=== PATIENT | female | born 1950 | race Asian ===

== ENCOUNTER → 2024-01-02 13:48 | Outpatient (CLI) | payer MEDICARE, SELFPAY ==
--- NOTE | 2024-01-02 13:51 | DI.NM.S_ITS ---
PROCEDURE: NM JARED PERF SPECT R&S PHARM Rest and pharmacological stress myocardial perfusion SPECT with gated imaging and ejection fraction RADIOPHARMACEUTICAL: 25.2 mCi Tc-99m tetrafosmin IV at rest and 25.6 mCi Tc-99m tetrafosmin IV at peak effect of pharmacological stress. Idr-vmc-gonvacly was performed. INDICATIONS: pre op TECHNIQUE: Radiopharmaceutical was injected at peak stress test, and also at rest. SPECT images were obtained. SPECT myocardial perfusion images were displayed in short axis, horizontal long axis, and vertical long axis views. Gated images were reviewed using HengZhi software. COMPARISON: None. CARDIAC STRESS: A pharmacologic stress test was performed under the supervision of an attending staff, using an infusion of lexiscan 0.4mg IV X1. Hemodynamic data: There is normal blood pressure and heart rate response to pharmacologic stress. Symptoms: The patient denied anginal chest pain. Aminophylline: none EKG: No diagnostic changes of ischemia; no ectopy. FINDINGS: Raw data: There is good myocardial uptake of radiotracer. No significant motion artifacts. Wmqb-yu-xfxuy ratio is 0.35 (normal is less than 0.38 for tetrafosmin tracer). Left ventricle function: Gated images demonstrate normal left ventricular wall thickening. No segmental wall motion abnormalities. No transient ischemic dilation; TID is 0.97 (normal less than 1.3). Left ventricle resting end diastolic volume is 66 mL. Left ventricle stress ejection fraction is 77%; normal range is above 45%. Myocardial perfusion: There is normal distribution of activity in the right and left ventricular myocardium. No fixed or reversible perfusion defects. IMPRESSION: Low risk, normal pharm nuclear stress test. 1) No perfusion evidence of ischemia or infarction. 2) Normal left ventricular size, wall motion, and systolic function (EF post stress 77%). 3) No angina during the study. 4) No ST changes during the study. 5) No prior nuclear stress test available for comparison. Dictated by: Heydi Salcedo MD on 01/03/2024 at 13:53 Approved by: Heydi Salcedo MD on 01/03/2024 at 13:55
== END ==
LOC: NUCM 13:50
PROVIDERS: Referring Provider Internal Medicine; Visit Provider Internal Medicine
DX: Z01.818 Encounter for other preprocedural examination (principal)
CPT/HCPCS: 78452; 93017; A9502; J2785

== ENCOUNTER → 2024-01-03 09:07 | Outpatient (CLI) | payer MEDICARE, SELFPAY ==
--- NOTE | 2024-01-03 09:08 | DI.ECHO.S_ITS ---
[facility] : : [address] : : [place] : : [id number] : : Phone: [phone] Echocardiogram Report + + :Name: LUCI RICE Study Date: 01/03/2024 Height: 59 in : :[facility] ReadingLocation: Weight: 127 lb : : Gender: Female BSA: 1.5 m2 : :: 1950 Age: 73 yrs BP: 148/62 mmHg: :Reason For Study: PRE-OP : :Ordering Physician: BRAYDEN COLLADO Performed By: Aniya Mccollum : :Referring: BRAYDEN COLLADO : + + Interpretation Summary 1. Normal left ventricular contractility. Estimated ejection fraction is greater than 55% with no segmental wall motion abnormalities. No LVH is noted. Impaired relaxation present. 2. The right ventricular contractility is normal. 3. The left atrium is mildly dilated. All other cardiac chambers are of normal size. 4. Mild mitral regurgitation present. 5. No obvious intracardiac masses nor thrombi appreciated. 6. No obvious intracardiac shunts noted. 7. No hemodynamically significant pericardial effusion identified. Conclusion: Normal biventricular systolic function with no significant structural abnormalities. Procedure: A two-dimensional transthoracic echocardiogram with color flow and Doppler was performed. The study quality was technically adequate. There is no prior echocardiogram noted for this patient. The patient was in sinus bradycardia with heart rates between 58-65 bpm during the exam. Left Ventricle: The left ventricle is normal in size and wall thickness. The ejection fraction is estimated to be 60-65%. Right Ventricle: The right ventricle is normal in size and function. Atria: The left atrium is mildly dilated. Right atrial size is normal. There is no Doppler evidence for an interatrial shunt. Mitral Valve: The mitral valve is normal in structure and function. There is mild mitral regurgitation. Aortic Valve: The aortic valve is grossly normal. The aortic valve opens well. There is no aortic valve stenosis. There is trace aortic regurgitation. Tricuspid Valve: The tricuspid valve is normal in structure and function. There is trace tricuspid regurgitation. Pulmonary artery pressures cannot be estimated because of the lack of a measurable TR jet velocity. Pulmonic Valve: The pulmonic valve is not well visualized. There is no pulmonic valvular regurgitation. Great Vessels: The aortic root is normal size. The ascending aorta could not be visualized. The IVC is of normal diameter and collapses greater than 50% with a sniff. This suggests a low right atrial pressure of 3 mm Hg. Pericardium/ Pleura There is no pericardial effusion. There is no pleural effusion. MMode/2D Measurements & Calculations LVIDd: 5.2 cm LVOT diam: 2.0 cm LVIDs: 3.4 cm Ao root diam: 2.8 cm FS: 35.3 % Ao Arch Diam (Prox Trans): 2.2 cm IVSd: 1.0 cm LVPWd: 0.82 cm LV jain. diameter/BSA (cm/m^2): 3.4 LV sys. diameter/BSA (cm/m^2): 2.2 LA A2 area: 20.9 cm2 RA long axis: 4.3 cm LA A4 area: 17.2 cm2 RA area: 12.0 cm2 LA length (vol): 4.9 cm RA vol: 28.1 ml LA vol: 61.5 ml RA : 18.5 ml/m2 LA vol index: 40.5 ml/m2 IVC diam: 1.3 cm RVD1 (basal): 3.3 cm TAPSE: 1.8 cm Doppler Measurements & Calculations Ao V2 max: 104.7 cm/sec LVOT Max [place]: 70.4 cm/sec Ao V2 mean: 75.8 cm/sec LV V1 max P.0 mmHg Ao max P.4 mmHg LV V1 VTI: 18.0 cm Ao mean P.[address](I,D): 2.1 cm2 Ao V2 VTI: 27.[address](V,D): 2.1 cm2 sev ratio: 0.66 LANE indexed to BSA (cm^2/m^2): 1.4 MV E max [place]: 72.6 cm/sec PA V2 max: 79.5 cm/sec MV A max [place]: 45.1 cm/sec PA V2 mean: 55.0 cm/sec MV E/A: 1.6 PA mean P.4 mmHg Med Peak E' [place]: 7.5 cm/sec PA pr(Accel): 34.5 mmHg E/E' med: 9.7 Lat Peak E' [place]: 7.5 cm/sec E/E' lat: 9.7 E/e' average: 9.7 MV dec time: 0.23 sec [facility]): 56.7 ml Reading Physician:
== END ==
LOC: ECHO 09:08
PROVIDERS: Referring Provider Internal Medicine; Visit Provider Internal Medicine
DX: Z01.818 Encounter for other preprocedural examination (principal); I34.0 Nonrheumatic mitral (valve) insufficiency
CPT/HCPCS: 93306

== ENCOUNTER → 2024-03-14 14:33 | Outpatient (CLI) | payer MEDICARE, SELFPAY ==
[2024-03-14 15:30] LABS: Appearance Urine UA CLEAR; Bilirubin Urine UA NEGATIVE (NEGATIVE); Color Urine UA YELLOW; Glucose Urine UA NEGATIVE (Negative); Ketones Urine UA NEGATIVE (NEGATIVE); Leukocyte Esterase Urine UA TRACE (NEGATIVE); Nitrite Urine UA NEGATIVE (Negative); Occult Blood Urine UA NEGATIVE (Negative); Protein Urine UA 1+ (Negative); Specific Gravity Urine UA 1.025 (1.000-1.035)
[2024-03-14 15:47] LABS: Bacteria Urine Few (2-10); Culture Indicated Urine Cult Not Indicated; Hyaline Casts Urine 5-10/LPF; RBC Urine None Seen (0-5/HPF); Squamous Epithelial Cell Urine 1-5 /HPF (0-5/HPF); Urine Volume 10mL (spun); WBC Urine 1-5/HPF (0-5/HPF)
[2024-03-14 15:57] LABS: BUN Creatinine Ratio 31.6 (6-22); Blood Urea Nitrogen 31 mg/dL (7-17); Calcium 9.1 mg/dL (8.4-10.2); Carbon Dioxide 25 mmol/L (22-32); Chloride 104 mmol/L (98-107); Estimated Glomerular Filt Rate > 60 mL/min (>60); Glucose 140 mg/dL (80-110); HEMOLYSIS < 15 (0-50); Potassium 3.4 mmol/L (3.4-5.1); Sodium 141 mmol/L (137-145)
== END ==
PROVIDERS: PCP Physician Assistant Medical; Referring Provider Orthopaedic Surgery; Visit Provider Orthopaedic Surgery
DX: R73.9 Hyperglycemia, unspecified (principal); Z01.812 Encounter for preprocedural laboratory examination; N39.0 Urinary tract infection, site not specified
CPT/HCPCS: 36415; 80048; 81001; 83036

== ENCOUNTER 2024-03-25 12:11 | Day surgery (SDC) | payer MEDICARE, SELFPAY ==
[2024-03-19 12:35] VITALS: BMI 24.7
[2024-03-25] VITALS (13 sets, daily range): BP systolic 92–159; BP diastolic 43–68; PULSE 54–74; RESP 12–21; TEMP 35.9–36.9; O2SAT 83–96; BMI 24.7
--- NOTE | 2024-03-25 | DI.RAD.S_ITS ---
PROCEDURE: XR PELVIS 1-2V INDICATIONS: INTRA OP PELVIS TECHNIQUE: 1 view(s) of the pelvis acquired. COMPARISON: None. FINDINGS: Bones: Single view limits evaluation. Right total hip arthroplasty is intact on this image with no perihardware lucency. Soft tissues: Postsurgical changes about the right hip. Vascular calcifications. Partially visualized vascular stent projects over the right pelvis. IMPRESSION: Right total hip arthroplasty is intact on limited single view. Dictated by: Ranjith Styles M.D. on 03/25/2024 at 16:26 Approved by: Ranjith Styles M.D. on 03/25/2024 at 16:27
--- NOTE | 2024-03-25 06:00 | DI.RAD.S_ITS ---
PROCEDURE: XR HIP W PEL IF DONE RT 2V INDICATIONS: CHRISTO TECHNIQUE: 2 view(s) of the hip acquired. COMPARISON: None. FINDINGS: Bones: Patient is status post left hip arthroplasty, with hardware components in expected positions. The hip joint appears congruent. The visualized bony structures appear intact. Soft tissues: Overlying postoperative changes are noted. No suspicious soft tissue densities. IMPRESSION: Expected post-operative appearance of a hip arthroplasty. Dictated by: Harley Salgado M.D. on 03/25/2024 at 17:03 Approved by: Harley Salgado M.D. on 03/25/2024 at 17:03
[2024-03-25] MEDS: LACTATED RINGERS 1,000 ML 42 ML IV (12:36)
[2024-03-25] MEDS: CELECOXIB 200 MG CAPSULE PO (12:36)
[2024-03-25] MEDS: ACETAMINOPHEN 325 MG TABLET 975 MG PO (12:36)
[2024-03-25] MEDS: VANCOMYCIN 1,000 MG/200 ML PIGGYBACK 120 MG IV (13:38)
--- NOTE | 2024-03-25 14:12 | PM.PREOP ---
Pre-operative Note Interval Note History & Physical reviewed/Exam performed by Physician: Yes Changes to H&P: No
--- NOTE | 2024-03-25 14:13 | PM.OP.1 ---
Operative Date/Time/Diagnoses Date of procedure: 03/25/24 Time of procedure: 14:30 Pre-op diagnosis: Severe right hip OA Post-op diagnosis: same Procedure & Clinicians Procedure: Right total hip arthroplasty posterior approach Same procedure as scheduled: Yes Indications: The patient has had progressively worsening right hip pain with radiographic changes consistent with arthritis. Non-operative management has failed and the patient has requested total hip replacement. The risks, benefits and alternatives to surgery were discussed with the patient prior to proceeding. Risks discussed included, but were not limited to, failure to relieve pain, leg length discrepancy, dislocation, stiffness, infection, nerve damage, deep venous thrombosis, pulmonary embolism, stroke, coma, heart attack, permanent paralysis and , as well as the potential need for eventual revision of the prosthetic. She also has a known severe vascular disease with prior vascular endoscopic stents bilaterally. Risk of vascular compromise or concerns was carefully considered and discussed preoperatively. She takes Plavix and I told her it is fine to be on her Plavix postoperatively. Surgeon: Frances De Leon Stencil Machine Operator: Ezio Evans Anesthesia Type: General and Spinal Operative Notes Findings: Severe right hip OA, adequate stability Closure Type: primary Specimen(s): none sent Prosthetic devices, grafts, tissues, transplants, or devices: Fifty-two R3 De Leon and Nephew cup, neutral poly liner, one 6.5 mm screw, size 1 standard offset polar stem, 36 x +0 femoral head Estimated Blood Loss (mL): 250 Blood products transfused: none Procedure in detail: The patient was seen in the pre-operative area, where the patient identified the right hip as the operative site and this was marked with my initials. The patient received pre-operative antibiotics and was taken to the operating room and placed on the operative table in the left lateral decubitus position after satisfactory anesthesia. A retread operator out was performed. The right leg was prepared from the ankle to the iliac crest with ChloroPrep in the usual fashion and draped through sterile drapes. A PA was used intraoperatively and was essential for intraoperative retraction and safe implantation of the components. The hip was approached through an approximately 20 cm incision centered over the greater trochanter and curving gently posteriorly as it went proximally. This was carried sharply to the fascia ki, which was divided and retracted with a self retaining retractor. The trochanteric bursa was excised with care being taken to avoid the sciatic nerve, which was identified and protected throughout the case. The short external rotators were incised and the capsulomuscular flap was raised and tagged for later repair. The hip was dislocated, and a femoral neck osteotomy performed approximately 15 mm above the lesser trochanter. Retractors were placed around the femur. The canal was opened with a box cutting osteotome, followed by a T handled reamer and a lateralizing reamer. The chili pepper broach was then used, followed by sequential broaching until there was good stability of the broach in the femur. Retractors were placed to expose the acetabulum. The labrum and central soft tissues were removed. Reaming was performed initially going up in 2 mm increments, then 1 mm increments until good bite was obtained with an odd sized reamer. The cup 1 mm larger than the last reamer was then inserted using the appropriate anteversion guides. It was further stabilized with a single screw. A trial neutral liner was placed. The broach was placed in the canal. A trial head and neck were then placed and the hip relocated and checked for leg length and stability. An intraoperative film confirmed the component position and no evidence of fracture. The patient was stable in the position of sleep, of squatting, and could be put through a range of motion with 45 degrees internal rotation without dislocation. At 90 degrees flexion, internal rotation to 70? was possible before dislocation. This was felt to be satisfactory and the appropriate components were opened, and the trials were removed. The acetabular liner was impacted into position. The final stem was then impacted into the prepared femoral canal. A brief Betadine soak was performed while trialing with head options. The hip was meticulously irrigated with normal saline. Finally the femoral head was impacted onto the stem. The acetabulum was cleared of all material and the hip relocated one final time. During the procedure was very careful to make sure the patient's leg was moving and not in awkward positions in order to avoid any vascular kinking or irritation. The sciatic nerve was also well visualized noted to be intact with no compression and she was quite thin so there was not much fat in the region of the sciatic nerve. Procedure was performed without difficulty. She had good stability. The capsulomuscular flap was then repaired to the greater trochanter though an awl hole using the tag sutures. The short external rotators were repaired with a nonabsorbable suture. The fascia ki was closed with Vicryl. The subcutaneous layer was closed with barbed sutures and surgical glue. An Aquacel Ag dressing was applied and the patient was taken to recovery having tolerated the procedure well. Complications: none Post-operative Condition: stable Disposition: Acute Care Plan for aftercare: The patient will be maintained on a standard total hip replacement protocol with weight bearing as tolerated and posterior hip precautions. The patient will receive Aspirin and Plavix and sequential compression devices for DVT prophylaxis. The patient will be discharged home when safe for the home environment.
[2024-03-25] MEDS: CEFAZOLIN 2 GM/100 ML PREMIX 100 ML IV ×2 (14:50→23:05)
[2024-03-25] MEDS: TRANEXAMIC ACID 1,000 MG VIAL 1000 MG INJ (14:58)
--- NOTE | 2024-03-25 15:21 | SUR.OPER ---
Lateral on padded OR bed. Gel axillary roll. Arms secured on padded armboard with pillow supporting top arm. Padded hip positioner braces x4 - anterior and posterior chest and pelvis. Additional gel pad used anterior pelvis. Gel pad under bottom leg from knee to foot and secured with tape over sheet.
[2024-03-25] MEDS: BUPIVACAINE LIPOSOME 266 MG/20 ML VIAL INJ (16:14)
[2024-03-25] MEDS: BUPIVACAINE 0.25% (PF) 60 ML, EPINEPHrine 0.3 MG INJ (16:15)
[2024-03-25] MEDS: ONDANSETRON 4 MG/2 ML INJ IV (16:48)
[2024-03-25] MEDS: OXYCODONE IR 5 MG TABLET PO ×2 (16:48→17:04)
[2024-03-25] MEDS: CLOPIDOGREL 75 MG TABLET PO (17:45)
--- NOTE | 2024-03-25 18:01 | PC.NURSE ---
Pt to room 213 via bed from PACU. Pt is awake, alert, and oriented x 3. Able to speak and understand Tajik without difficulty-samish language is Slovak. Friend/ S.O is at the bedside. Upon arrival to the room Pt stated she needed to get up to void. Assisted Pt up to bsc using gait belt and FWW. Pt able to void and then returned to bed to eat dinner. Reviewed posterior hip precautions with Pt-pillow was placed between legs to prevent leg crossing. IV infusing as ordered. SCD's on and running. Bed alarm on for safety. Pt oriented to room, call light, bed controls, and tv controls. Pt agrees to not get up without assistance. Pt denies needs at this time.
[2024-03-25] MEDS: PANTOPRAZOLE DR 40 MG TABLET PO (21:30)
[2024-03-25] MEDS: DOCUSATE 100 MG CAPSULE PO (21:30)
[2024-03-25] MEDS: ATORVASTATIN 20 MG TABLET 40 MG PO (21:30)
[2024-03-25] MEDS: LOSARTAN 50 MG TABLET PO (21:30)
[2024-03-25] MEDS: METOPROLOL ER 50 MG TABLET PO (21:31)
[2024-03-25] MEDS: LACTATED RINGERS 1,000 ML 100 ML IV (21:31)
[2024-03-26] VITALS (9 sets, daily range): BP systolic 120–138; BP diastolic 42–52; PULSE 60–67; RESP 16–18; TEMP 36.7–36.9; O2SAT 88–98
[2024-03-26 06:09] LABS: Hematocrit 32.7 % (36-46); Hemoglobin 10.7 g/dL (12.0-16.0)
[2024-03-26] MEDS: OXYCODONE IR 5 MG TABLET PO ×3 (06:27→23:34)
[2024-03-26] MEDS: CEFAZOLIN 2 GM/100 ML PREMIX 100 ML IV (06:28)
--- NOTE | 2024-03-26 07:47 | PM.DS.1 ---
History of Present Illness History of Present Illness Date Patient Seen: 03/26/24 Time Patient Seen: 07:47 Chief complaint: OPB Narrative: Operative Date/Time/Diagnoses Date of procedure: 03/25/24 Time of procedure: 14:30 Pre-op diagnosis: Severe right hip OA Post-op diagnosis: same Procedure & Clinicians Procedure: Right total hip arthroplasty posterior approach Same procedure as scheduled: Yes Indications: The patient has had progressively worsening right hip pain with radiographic changes consistent with arthritis. Non-operative management has failed and the patient has requested total hip replacement. The risks, benefits and alternatives to surgery were discussed with the patient prior to proceeding. Risks discussed included, but were not limited to, failure to relieve pain, leg length discrepancy, dislocation, stiffness, infection, nerve damage, deep venous thrombosis, pulmonary embolism, stroke, coma, heart attack, permanent paralysis and , as well as the potential need for eventual revision of the prosthetic. She also has a known severe vascular disease with prior vascular endoscopic stents bilaterally. Risk of vascular compromise or concerns was carefully considered and discussed preoperatively. She takes Plavix and I told her it is fine to be on her Plavix postoperatively. Surgeon: Frances De Leon Manager Heavy Duty: Ezio Evans Anesthesia Type: General and Spinal Operative Notes Findings: Severe right hip OA, adequate stability Closure Type: primary Specimen(s): none sent Prosthetic devices, grafts, tissues, transplants, or devices: Fifty-two R3 De Leon and Nephew cup, neutral poly liner, one 6.5 mm screw, size 1 standard offset polar stem, 36 x +0 femoral head Estimated Blood Loss (mL): 250 Discharge Providers Provider Date of admission: 03/25/24 Discharge Date: 03/26/24 Primary care physician: Christal Davis PA-C Consults: 03/25/24 06:00 Consult to Anesthesiology Routine Comment: Consulting Provider: Anesthesiologist Reason for consultation: Regional block for post operative pain control Has provider been notified: No Consult to Anesthesiology Routine Comment: Consulting Provider: Anesthesiologist Reason for consultation: Regional block for post operative pain control 03/25/24 17:25 Consult to Discharge Planning Routine Comment: Consult to Occupational Therapy Evaluate & Treat Comment: Physician Instructions: Evaluate and treat Consult to Physical Therapy Evaluate & Treat Comment: Physician Instructions: post op CHRISTO protocol Discharge provider: Jessee Barajas PA-C Summary Hospital Course Discharge Diagnosis: Status post right total hip arthroplasty. Hospital Course: Multimodal pain control and physical therapy. Status at Discharge Cognitive/behavioral status at discharge: oriented Functional status at discharge: uses cane/walker Overall status at discharge: patient is back to baseline Time Spent with Patient Time spent: Less than 30 minutes Time spent discussing smoking cessation with patient: 3 to 10 minutes Exam Vital Signs (past 8 hours): Oxygen Delivery Method Room Air Oxygen Flow Rate 0 Narrative Exam Narrative: Patient was found lying comfortably in bed. She says she has a little pain. Denies any numbness or tingling down the right leg. Denies any fever chills nausea or vomiting. No increased pain bilaterally to the posterior calf or thighs. No warmth noted upon palpation. Able to dorsiflex and plantarflex against resistance bilaterally at the ankles Dressing is clean and dry no signs of discharge. SCDs found off. Resp Effort & Inspection: normal respiratory effort and able to speak in complete sentences Objective Labs 03/26/24 05:13 Labs: Laboratory Results - last 24 hr 03/26/24 05:13 Hgb 10.7 L Hct 32.7 L PFSH Medical History (Updated 03/19/24 @ 13:21 by Paulette Miner RN) Hypoxemia Bilateral carotid bruits PAD (peripheral artery disease) Acute and chronic respiratory failure Spinal stenosis of lumbar region Cervical spinal stenosis Hypokalemia Renal artery stenosis Diabetes Renal insufficiency Osteoarthritis Hypercholesteremia HTN (hypertension) PVD (peripheral vascular disease) COPD (chronic obstructive pulmonary disease) History of COVID-19 (~08/2023) Surgical History (Updated 03/19/24 @ 12:42 by Paulette Miner RN) S/P insertion of iliac artery stent Social History household members: spouse and none Smoking Status: Former smoker alcohol intake: never Discharge Assessment & Plan Assessment and Plan Assessment: Status post right total hip arthroplasty. Plan of Treatment: SCDs reapplied and to be used when in bed. Discharge to home. Patient is already been prescribed postoperative medications and discussed with their usage. Continue with aspirin 81 mg twice a day for 6 weeks. Ambulate with assistive devices full weightbearing activity as tolerated. Initiate physical therapy in 5 to 10 days. Wound check at clinic in 2 weeks. Discharge Plan Discharge Plan Patient Disposition: Home Provider Discharge Comment: DC pending PT approval Discharge orders & Medications Discharge Orders: Discharge (Order); Ordered 03/26/24 Ordered By: Jessee Barajas Prescriptions: Continued losartan 50 mg Tablet 50 mg PO BID metoprolol succinate 50 mg Tablet Extended Release 24 Hr 50 mg PO BID clopidogrel 75 mg Tablet 75 mg PO DAILY aspirin 81 mg Tablet,Delayed Release (Dr/Ec) 81 mg PO DAILY amlodipine 10 mg Tablet 10 mg PO DAILY pantoprazole 40 mg Tablet,Delayed Release (Dr/Ec) 40 mg PO BID albuterol sulfate 90 mcg/actuation Hfa Aerosol Inhaler 2 puff INHALATION Q4-6H PRN (Reason: Shortness Of Breath) rosuvastatin 20 mg Tablet 20 mg PO BEDTIME albuterol sulfate 90 mcg/actuation HFA aerosol inhaler 2 puff INHALATION Q4H Patient Comments: pt states 2 weeks or so ago Follow up/Referrals: Frances De Leon MD [Physician] - 04/08/24 10:30 am (Follow up w/ Frank Barajas PA-C, at [facility] in [place] Christal Davis PA-C [Primary Care Provider] - Diet/Activity/Treatments Diet: Diet as Tolerated Activity: Weightbearing as tolerated, posterior hip precautions. Cold/Heat Therapy: Ice to hip as needed for pain. Skin/Wound/Dressing Care Report to your healthcare provider any signs of infection, such as:: chills, fever, night sweats, unusual drainage and unusual redness Dressing: May shower. Keep dressing in place until follow up in office. No bathing or otherwise soaking incision. Call the office if the dressing becomes saturated inside. Visit Report/Discharge Packet Instructions: DI for Hip Replacement Stand Alone Forms: Patient Portal/API, Surgery Discharge Discharge Data Primary Care Provider: Christal Davis Attending Provider: Frances De Leon Quality VTE Deep Vein Thrombosis/Pulmonary Embolism Present on Admission: No
[2024-03-26] MEDS: PANTOPRAZOLE DR 40 MG TABLET PO ×2 (08:59→20:59)
[2024-03-26] MEDS: ASPIRIN EC 81 MG TABLET PO ×2 (08:59→20:59)
[2024-03-26] MEDS: DOCUSATE 100 MG CAPSULE PO ×2 (08:59→20:59)
[2024-03-26] MEDS: CLOPIDOGREL 75 MG TABLET PO (08:59)
[2024-03-26] MEDS: METOPROLOL ER 50 MG TABLET PO (08:59)
[2024-03-26] MEDS: AMLODIPINE 5 MG TABLET 10 MG PO (08:59)
[2024-03-26] MEDS: ACETAMINOPHEN 325 MG TABLET 650 MG PO (09:00)
[2024-03-26] MEDS: LOSARTAN 50 MG TABLET PO (09:00)
--- NOTE | 2024-03-26 10:03 | OT.IP.EVAL ---
Current Diagnoses Unilateral primary osteoarthritis, right hip (03/25/24) Surgery Performed Operation Date: 03/25/24 13:45 Actual Procedures p Total Hip Arthroplasty(Right) - Frances De Leon MD Past Medical History (Last Updated 03/19/24 @ 13:21 by Paulette Miner, RN) Acute and chronic respiratory failure Bilateral carotid bruits Cervical spinal stenosis COPD (chronic obstructive pulmonary disease) Diabetes History of COVID-19 (~08/2023) HTN (hypertension) Hypercholesteremia Hypokalemia Hypoxemia Osteoarthritis PAD (peripheral artery disease) PVD (peripheral vascular disease) Renal artery stenosis Renal insufficiency Spinal stenosis of lumbar region Surgical History (Last Updated 03/19/24 @ 12:42 by Paulette Miner, SUSI) S/P insertion of iliac artery stent Occupational Therapy Inpatient Evaluation/Re-Eval M1 PT/OT-IP Prior Functional Status Start: 03/26/24 10:14 Freq: NEEDED Status: Active Protocol: Document 03/26/24 10:14 [facility] (Rec: 03/26/24 10:39 [facility] [id number]) Medical Review Prior Functional Status Communication French is her primary language . Mobility and Gait Pt did not use a device but only able to walk for 4-5 minutes at a time and did not use a device. Activities of Daily Living and IADL's Pt able to do ADL and IADL needs but had pain. Social History Household Members none Living Arrangements House Number of Floors (Floors) One Floor Number of Stairs To Enter/Railing? NO steps to get into the house . Pt uses a step to get into bed . Home Environment Standard Height Toilet,Tub/ Shower Home Equipment Four Wheel Walker,Straight Cane,Shower Seat with Backrest ,Hand Held Shower,Grab Bars In Shower M2 OT-IP Current Condition Start: 03/26/24 10:14 Freq: Status: Active Protocol: Document 03/26/24 10:14 [facility] (Rec: 03/26/24 10:39 [facility] [id number]) Occupational Therapy Current Condition Current Condition Evaluation Date 03/26/24 Treatment Diagnosis S/P R CHRISTO posterior precautions Diagnosis Onset Date 03/25/24 Post Operative Precautions Posterior Hip Precautions No Hip Flexion > 90 degrees,No Hip Internal Rotation,No Hip Adduction Weight Bearing Status Weight Bearing Status Weight Bear as Tolerated M3 OT- IP Subjective and Pain Start: 03/26/24 10:14 Freq: Status: Active Protocol: Document 03/26/24 10:14 [facility] (Rec: 03/26/24 10:39 [facility] [id number]) OT- Subjective Occupational Therapy Visit Type Type Initial Evaluation Visit Start Time 09:05 Visit Stop Time 10:03 Occupational Therapy Visit Comments Patient Comments Pt agreed to get up. Patient/Caregiver Goals To go home. OT Pain Assessment Pain When Pain Assessed At Rest Pain Present Pain Present Pain Reported Location Right Hip Intensity 7 Scale Used Numeric (0 - 10) M4 OT- IP ADL's Start: 03/26/24 10:14 Freq: Status: Active Protocol: Document 03/26/24 10:14 [facility] (Rec: 03/26/24 10:39 [facility] [id number]) OT [id number]-[id number]-[id number] General Evaluation Self-Feeding Ability Independent OT ADL-Grooming Comments OT Grooming Comments Not performed. OT ADL-Oral Care Comments Oral Care Comments Not performed. OT ADL-Dressing General Eval Lower Body Dressing Ability Maximum Assistance Areas Needing Assistance Socks Comments OT Dressing Comments Pt will benefit from assist for all LB dressing needs and getting LB dressing equipment. OT ADL-Toileting Comments OT Toileting Comments Pt not having to go at this time. Educated best to stand and wipe, use of brief/pads so not having to hurry to the bathroom. In addition to get a BSC. OT ADL-Bathing Comments OT Bathing Comments Pt will benefit from a tub bench. Pt states her friend will just pick her up and put her into the shower and use a shower chair. Discouraged pt from doing so. M5 OT- IP IADL's Start: 03/26/24 10:14 Freq: Status: Active Protocol: Document 03/26/24 10:14 [facility] (Rec: 03/26/24 10:39 [facility] [id number]) OT-Instrumental Activities of Daily Living Deficits IADL Deficits Identified Deficits Home Safety Awareness Awareness of Need for Assistance at Home Good Awareness Home Safety Comments Pt is aware that she will need assist for ADl and IADL needs . Medication Management Medication Management Comments Pt states does her own. Money Management Money Management Comments Pt states does her own. Meal Preparation Meal Preparation Caregiver Provides Assist Rn Military Rn Military Caregiver Provides Assist M6 OT- IP Functional Cognition Start: 03/26/24 10:14 Freq: Status: Active Protocol: Document 03/26/24 10:14 [facility] (Rec: 03/26/24 10:39 [facility] [id number]) Cognitive Factors Limiting Selfcare Function Cognitive Ability Level of Alertness Alert Patient Orientation Name,Age,Birthday,Month,Date, Year,Day of Week,Place, Situation Attention Span Ability Capable of Focused Attention, Capable of Sustained Attention Ability to Follow Commands Able to Follow One Step Commands Cognitive Comments Cognitive Assessment Comments Pt able to follow commands for ADL and mobility needs. Pt able to recall and incorporate her precautions with occasional vc especially for bed mobility needs. OT- Vision and Hearing OT- Hearing Assessment OT- Hearing Assessment WFL OT- Vision Assessment Visual Acuity Glasses All The Time Visual Attentiveness WFL Occular Pursuits WFL M7 OT- IP Mobility and Balance Start: 03/26/24 10:14 Freq: Status: Active Protocol: Document 03/26/24 10:14 [facility] (Rec: 03/26/24 10:39 [facility] [id number]) OT- Bed Mobility Assessment Supine to Sit Supine to Sit Assist Moderate Assistance,Maximum Assistance Sit to Supine Sit to Supine Assist Moderate Assistance Scooting Scooting to Edge of Bed Moderate Assistance OT-Transfer Assessment Sit to and From Stand Sit to and from Stand Minimal Assistance Transfers Transfer Ability Minimal Assistance Technique Transfer Destination Bed,Chair Transfer Technique Stand Step Pivot Devices Transfer Assistive Devices Gait Belt,Front Wheeled Walker Orthotic/Prosthetic Devices or Brace: No Comments Mobility Comments MODA to help move her RLE to the edge of the bed and assist to get her trunk upright. MAX AX to help scoot forwards in the bed. RUKHSANA to stand from the high bed and RUKHSANA to take small steps to the recliner. BP RUE HOB up 79/39, 87/48. supine 94/55, sitting 76/43, 85/37 feeling woozy, back in supine 83/49- nursing notified . Per nurse pt's BP higher in her left arm. Supine 141/46, sitting 140/34, and standing 134/41 transfer tp recliner. Pt put on 2L of O2 by nursing as no RA reading mid 80's and on 2L from 88-91%. OT- Balance Assessment Sitting Balance and Reactions Static Sitting Balance Ability Good Dynamic Sitting Balance Ability Fair Standing Balance and Reactions Static Standing Balance Ability Poor Dynamic Standing Balance Ability Poor M8 OT- IP Objective Assessments Start: 03/26/24 10:14 Freq: Status: Active Protocol: Document 03/26/24 10:14 [facility] (Rec: 03/26/24 10:39 [facility] [id number]) OT Strength Comments Strength Comments WFL for mobility needs. M9 OT- IP Assessment and Plan Start: 03/26/24 10:14 Freq: Status: Active Protocol: Document 03/26/24 10:14 [facility] (Rec: 03/26/24 10:39 [facility] [id number]) OT Summary Assessment and Plan Potential Rehabilitation Potential Good Analytic Complexity at Evaluation Low Summary OT Impairments Pain,Range of Motion,Strength, Balance,Functional Mobility, Grooming,Dressing,Toileting, Bathing,Toilet Transfers, Shower Transfers,Activity Tolerance Progress Towards Goals Slow Progress due to Pain,Slow Progress due to Medical Issues,Slow Progress due to Activity Tolerance Assessment Summary Pt low complexity and main barriers are pain, feeling woozy when sitting and standing, and needing assist for RLE for bed mobility needs , and now using 2L of O2. Pt to have assist at home for all needs and will benefit from assist with all ADL and mobility needs at this time. Pt to go home when medically stable and have outpt PT. Goals Grooming Goal Independent Dressing Goal Minimal Assistance Toileting Goal Independent Bathing Goal Standby Assistance Toilet Transfer Goal Independent Shower Transfer Goal Standby Assistance Days to Meet Goals 5 Frequency of Treatment Other frequency 5x/week Treatment Plan OT Treatment Plan ADL Training,Functional Mobility,Patient/Family Education,Discharge Planning Other Treatment Recommendations and Next Standing ADL's Treatment Focus Discharge Recommendations OT Discharge Recommendations Home with 19/03 Assist Available,Outpatient PT Home Equipment Needs BSC, tub bench, FWW Transportation Needs at Discharge Private Vehicle
--- NOTE | 2024-03-26 12:40 | PT.IIE ---
Current Diagnoses Unilateral primary osteoarthritis, right hip (03/25/24) Surgery Performed Operation Date: 03/25/24 13:45 Actual Procedures p Total Hip Arthroplasty(Right) - Frances De Leon MD Surgical History (Last Updated 03/19/24 @ 12:42 by Paulette Miner, RN) S/P insertion of iliac artery stent Medical History (Last Updated 03/19/24 @ 13:21 by Paulette Miner, RN) Acute and chronic respiratory failure Bilateral carotid bruits Cervical spinal stenosis COPD (chronic obstructive pulmonary disease) Diabetes History of COVID-19 (~08/2023) HTN (hypertension) Hypercholesteremia Hypokalemia Hypoxemia Osteoarthritis PAD (peripheral artery disease) PVD (peripheral vascular disease) Renal artery stenosis Renal insufficiency Spinal stenosis of lumbar region Physical Therapy Inpatient Evaluation/Re-Eval M1 PT/OT-IP Prior Functional Status Start: 03/26/24 10:14 Freq: NEEDED Status: Active Protocol: Document 03/26/24 12:03 AMB (Rec: 03/26/24 12:39 AMB [id number]) Medical Review Prior Functional Status Communication Sami is her primary language . Mobility and Gait Pt did not use a device but only able to walk for 4-5 minutes at a time and did not use a device. Activities of Daily Living and IADL's Pt able to do ADL and IADL needs but had pain. Social History Household Members none Living Arrangements House Number of Floors (Floors) One Floor Number of Stairs To Enter/Railing? NO steps to get into the house . Pt uses a step to get into bed . Home Environment Standard Height Toilet,Tub/ Shower Home Equipment Four Wheel Walker,Straight Cane,Shower Seat with Backrest ,Hand Held Shower,Grab Bars In Shower Additional Social History Comment Patient is dischargin to a friends' home where there are adult children who can assist her as well. She will return to her home at a later date. M2 PT-IP Current Condition Start: 03/26/24 10:00 Freq: NEEDED Status: Active Protocol: Document 03/26/24 12:03 AMB (Rec: 03/26/24 12:39 AMB [id number]) Physical Therapy Current Condition Current Condition Evaluation Date 03/26/24 Treatment Diagnosis R posterior CHRISTO Onset Date 03/25/24 M3 PT-IP Subjective Start: 03/26/24 10:00 Freq: NEEDED Status: Active Protocol: Document 03/26/24 12:03 AMB (Rec: 03/26/24 12:39 AMB [id number]) Subjective Physical Therapy Visit Type Type Initial Evaluation Visit Start Time 11:00 Visit Stop Time 11:45 Physical Therapy Visit Comments Patient Comments Pt is having some pain, but is willing to get up, she needs to urinate Therapy Pain Assessment Pain When Pain Assessed After Treatment Pain Present Pain Present Pain Reported Location Right Hip Intensity 6 Scale Used Numeric (0 - 10) Pain Behaviors Guarding Pain Management Techniques Apply Cold,Re-positioning M4 PT-IP Mobility and Gait Start: 03/26/24 10:00 Freq: NEEDED Status: Active Protocol: Document 03/26/24 12:03 AMB (Rec: 03/26/24 12:39 AMB [id number]) PT-Transfer Assessment Sit to and From Stand Sit to and from Stand Contact Guard Assistance,1 Person Assistance,Use of Upper Extremities Equipment Transfer Assistive Device Gait Belt,Front Wheeled Walker Transfers Transfer Destination Bed,Chair,Bedside Commode Transfer Technique Stand Step Pivot Transfer Ability Level of Assist Contact Guard Assistance,1 Person Assistance,Use of Upper Extremities Comments Mobility Comments Myke was sitting in a chair when PT entered the room. She needed to urinate, PT assisted her to standing with gait belt, reviewed posterior hip precautions and assisted her to transfer to commode. Her O2 in standing with 2L nasal cannula was 90 and BP in standing was 115/37. After voiding she stood to stand to walk, see mobility section. Gait Assessment Gait Gait Assistance Required: Contact Guard Assist Distance (Feet) 8 Able to Maintain Weight Bearing Status Yes During Gait Assistive Devices Assistive Device Front Wheeled Walker Gait Deviations General Gait Pattern Antalgic,Decreased Stride Length,Decreased Feet Clearance,Step-to Gait Factors Limiting Gait Function Factors Limiting Gait Function Decreased Activity Tolerance, Decreased Strength,Pain Comments Gait Comments Myke has good safety awareness but was very slow with her gait due to pain and dizziness. She required CGA with FWW and ambulated 8 feet in 3-4 minutes without supplementary O2. After walking she noted increased pain in her hip and in her bilateral shoulders from holding the walker. Her O2 dropped to 85 and blood pressure improved to 120/51. She noted she was about 20% dizzy. Overall slow antalgic gait, very careful. M5 PT-IP Objective Assessments Start: 03/26/24 10:00 Freq: NEEDED Status: Active Protocol: Document 03/26/24 12:03 AMB (Rec: 03/26/24 12:39 AMB [id number]) Orientation Orientation/Cognition Level of Alertness Alert Gross Range of Motion Lower Extremity ROM Assessment Right Impaired Strength Lower Extremity Strength Assessment Right Impaired M6 PT-IP Treatment Start: 03/26/24 10:00 Freq: NEEDED Status: Active Protocol: Document 03/26/24 12:03 AMB (Rec: 03/26/24 12:39 AMB [id number]) Physical Therapy Treatment Exercises Exercises Ankle Pumps Education Education Provided Precautions M7 PT-IP Assessment and Plan Start: 03/26/24 10:00 Freq: NEEDED Status: Active Protocol: Document 03/26/24 12:03 AMB (Rec: 03/26/24 12:39 AMB [id number]) PT Summary Assessment and Plan Potential Rehabilitation Potential Fair Status of Condition at Evaluation Evolving Summary Impairments Pain,Bed Mobility,Transfers, Gait,Activity Tolerance Assessment Summary Myke's blood pressure has been quite low, resulting in dizziness. She is also experiencing pain and low O2 stats which is impacting her mobility. She walked 8 feet very slowly and carefully, requiring at least 3 minutes to ambulate 8 feet. Myke will need to ambulate from the car into her home and step up onto a step to get into bed. She also voids urine multiple times at night and will need to get off of the platform onto the floor to do this. She was encouraged to ask for help from her friend to do this and not do it independently at this time. Considering her poor mobility, dizziness, low O2 levels PT would recommend that she have more time in the hospital before going home so that she can be safer at discharge. Taking 3 minutes to walk 8 feet is not especially functional and given her low blood pressure she remains at high risk of falls at this time. Goals Bed Mobility Goal Contact Guard Assistance Transfer Goal Contact Guard Assistance Gait Goal Contact Guard Assistance Gait Distance 50 Days to Meet Goals 3 Frequency of Treatment Frequency Of Treatment Twice a Day Treatment Plan Physical Therapy Treatment Plan Bed Mobility Training,Transfer Training,Gait Training, Therapeutic Exercise, Neuromuscular Re-ed Other Recommendations and Next Treatment Practice step to get into bed, Focus progress tolerance for further gait distances Precautions Posterior Hip Precautions No Hip Flexion > 90 degrees,No Hip Internal Rotation,No Hip Adduction Weight Bearing Status Weight Bearing Status Weight Bear as Tolerated Recommendations To Nursing Amount of Assist Needed 1 Person Assist Discharge Recommendations PT Discharge Recommendations Home with 19/03 Assist Available Transportation Needs at Discharge Private Vehicle
--- NOTE | 2024-03-26 13:52 | CM.DANOTE ---
Initial DCP Assessment Visit Note Reviewed EMR and team rounds for status updates. Met with pt at bedside to introduce self and role. Pt was found to be resting comfortably in bed, appearing comfortable, and able to discuss her preference for home d/c. Pt resides independently in her own home in [place]. Her SO will transport her home once she's medically cleared for d/c, anticipated for later today. Payor: BRUCE Helton Attending: Dr. Frances De Leon Pt is a 73 year-old F post-op day 1 from her R-hip total arthroplasty surgery. She is doing well postoperatively with good pain control. Pt has a hx of progressively worsening R-hip pain, has tried numerous conservative efforts at pain reduction including several cortisone shots. She does not typically use any assistive devices at baseline for mobility, however does have the necessary DME in place at home for her recovery needs. DCP will continue to follow for any further evolving d/c needs, however she declines any assistance/resource needs from CM at this time. Discharge Planning/Care Management CM Discharge Assessment Start: 03/26/24 13:48 Freq: Status: Active Protocol: Document 03/26/24 13:48 DPL (Rec: 03/26/24 13:52 DPL [id number]) Discharge Planning Assessment Assigned Training Program Assistant CHU Sharma Advance Directives? No History Provided By Patient,Medical Record Has Patient been admitted in last 30 No days? Prior Living Arrangements House Household Members spouse,none Type of transporation used prior to Drives own vehicle admit Independent with ADL's Yes Is patient alert and oriented? Yes Caregiver for Another No DME Already Rented / Owned FWW / Walker Patient/Family Preference OP PT Therapy Barriers to Discharge No Discharge Plan Home Community Services Physical Therapy Transportation Arrangement Significant Other Referrals Initiated None needed Whiteboard Updated in Patient Room with Yes name and ext. # of Training Program Assistant Review Status In Process Please Provide Date Initial DC 03/26/24 Assessment Was Performed Pre-Anesthesia Assessment Start: 03/19/24 12:35 Freq: Status: Active Protocol: Document 03/19/24 12:35 CAB (Rec: 03/19/24 13:37 CAB [id number]) Pre-Anesthesia Assessment Patient Information Reviewed Via Phone Assessment Assessment Completed With Caregiver Comment Pt gave verbal ok to complete phone assessment with caregiver Angel Davis Primary Care Provider Christal Davis Comment Visit 11/08/23, clearance form 02/01/24 scanned and in surgery folder Seen Specialist in Last 12 Months Yes Specialist Seen Bistro Server,Orthopedist Primary Language Comoran Preferred Language Slovak Machine Tool Dresser Required No Height 152.4 cm Weight 57.606 kg Body Mass Index (BMI) 24.7 Hearing Ability Normal Visual Assist Glasses Dentition Type Teeth, Natural Present Barriers to Learning Language Hx Anesthesia Reactions No Hx Family Anesthesia Reaction No Hx Malignant Hyperthermia No Hx Blood Transfusions No Anesthesia Review Requested Yes: Review completed prior to scheduling surgery Fur Floor Worker No alcohol intake never Smoking Status Former smoker how long ago did patient quit smoking Quit approx 10-12 years ago Substance Use Type does not use Pain Present Pain Reported Musculoskeletal Symptoms Abnormal Gait,Arthralgias, Difficulty Walking,Joint Pain History of Falling (Recent or History of No ) Patient is completely paralyzed or No completely immobile Prosthesis or Orthotic Device Cane Mental Status Oriented to own ability Is patient on oxygen? Yes: 2L02 @ HS Does patient have OCNONOR/SOB Yes Hx Sleep Apnea No Currently Taking a Beta Kelley Yes: Metoprolol Can You Climb a Flight of Stairs Without No SOB Hx Chest Pain No Hx SOB Yes Hx Syncope or Dizziness No Anti-Coagulant Therapy Yes: Plavix-advised to hold5 days prior, ASA to hold 7 days per Surgeon office Has a Bistro Server Yes: Pre-op visit 11/12/[address] Collado Cardiac Testing Yes: Echo, stress @ 01/02/24- low risk Hx Pacemaker/ICD No Pacemaker Rep Required? No Cardiac Clearance Received Yes Comment Cardiac records scanned and in surgery folder Diet Type At Home Regular Dysphagia No Gastrointestinal Symptoms None Urinary Catheter Present No Hx Urinary Self Catheterization No Diabetes Yes HgbA1C 7.0 Date 03/14/24 Patient No Lactating No Hx Drug Resistant Organism No Presence of External or Internal Medical Yes: Left external iliac stent Devices , right lower extremity Marital Status Single Lives With none Current Living Arrangements House Number of Floors (Floors) One Floor Support System Caregiver Does the Patient Have Assistance After Yes: Caregiver with stay w/pt Surgery to assist with care at [place] Patient Discharge Plan Description Return Home Comment Pt advised overnight length of stay per surgeon Feels Safe in Current Environment Yes Been Physically Hurt or Threatened By a No Person in Current Environment Do you have thoughts of harming yourself None or others? Are you currently considering suicide? No Do you have a plan to hurt yourself or No Plan others? If Yes, Provider Notified No Do You Have Any Spiritual Beliefs That No May Affect Your HC Choices? Do You Have Any Cultural Practices That No May Affect Your HC Choices? Who Can We Speak to About Patient's Care Family, friends Identifying Code for Release of Patient Declines to issue Information Health Care Proxy/Next of Kin Robert Davis (Caregiver) Health Care Proxy Emergency Contact Name Robert Davis (Caregiver) Emergency Contact Advance Directives? No Power of Script Girl No PAC Instructions Diabetes instructions,Do not shave/clip surgical site, Durable medical equipment, Medications to take/avoid, Nasal antibiotic,No ETOH/ petroleum product on skin DOS, NPO,Pre-surgical wash,Sensory aids,Sturdy shoes/comfortable clothes,Do not bring valuables and remove jewelry
--- NOTE | 2024-03-26 16:42 | PC.NURSE ---
Day shift: Notified KENNEY Barajas that patient continues to have difficulty ambulating and that patient is requiring oxygen to have O2 sats above 90 percent. KENNEY Marie ok'ed stopping the discharge order for tonight. Patient and patient's friend stated that patient has home O2 getting set up at the house tomorrow. At 1600, patient reported taking her own oxycodone that she had already picked up from the pharmacy. This RN told patient that while in the hospital she needs to take medication only from the hospital nurses so we don't double dose her. Patient stated understanding. Will continue to monitor.
--- NOTE | 2024-03-26 17:43 | PT.IPTN ---
Current Diagnoses Unilateral primary osteoarthritis, right hip (03/25/24) Surgery Performed Operation Date: 03/25/24 13:45 Actual Procedures p Total Hip Arthroplasty(Right) - Frances De Leon MD Physical Therapy Treatment Note M2 PT-IP Current Condition Start: 03/26/24 10:00 Freq: NEEDED Status: Active Protocol: Document 03/26/24 12:03 AMB (Rec: 03/26/24 12:39 AMB [id number]) Physical Therapy Current Condition Current Condition Evaluation Date 03/26/24 Treatment Diagnosis R posterior CHRISTO Onset Date 03/25/24 M3 PT-IP Subjective Start: 03/26/24 10:00 Freq: NEEDED Status: Active Protocol: Document 03/26/24 17:34 AMB (Rec: 03/26/24 17:40 AMB [id number]) Subjective Physical Therapy Visit Type Type Treatment Note Visit Start Time 16:15 Visit Stop Time 16:45 Physical Therapy Visit Comments Patient Comments Pt's friend is now present, he is concerned about her O2 stats, she says she is feeling less dizzy than the morning, but still concerned about the hip pain. Her friend states, that contrary to what this PT understood this morning, there are stairs to enter his house . M4 PT-IP Mobility and Gait Start: 03/26/24 10:00 Freq: NEEDED Status: Active Protocol: Document 03/26/24 17:40 AMB (Rec: 03/26/24 17:43 AMB [id number]) PT-Bed Mobility Assessment Rolling Type of Rolling Roll to Right Level of Assist Contact Guard Assistance Supine to Sit Supine to Sit Contact Guard Assistance,1 Person Assistance Sit to Supine Sit to Supine Contact Guard Assistance PT-Transfer Assessment Sit to and From Stand Sit to and from Stand Contact Guard Assistance,1 Person Assistance,Use of Upper Extremities Equipment Transfer Assistive Device Gait Belt,Front Wheeled Walker Comments Mobility Comments Myke was sitting up in bed and was able to perform bed mobility with CGA. Gait Assessment Gait Gait Assistance Required: Contact Guard Assist Distance (Feet) 12 Able to Maintain Weight Bearing Status Yes During Gait Assistive Devices Assistive Device Front Wheeled Walker Gait Deviations General Gait Pattern Antalgic,Decreased Stride Length,Decreased Feet Clearance,Step-to Gait Factors Limiting Gait Function Factors Limiting Gait Function Decreased Activity Tolerance, Decreased Strength,Pain Comments Gait Comments Continues to ambluate very slowly, but was walking slowly prior to surgery. CGA with FWW and gait belt. Stair Climbing Assessment Evaluation Level of Assist On Stairs Minimal Assistance Devices Stair Climbing Assistive Devices Front Wheel Walker Technique/Endurance Stair Climbing Direction Ascend and Descend Stair Climbing Technique Step to Step Number of Steps Climbed 1 Stair Climbing Set # Repetitions (reps) 2 Comments Stair Climbing Comments Platform step up in room, friend was present and observed. M5 PT-IP Objective Assessments Start: 03/26/24 10:00 Freq: NEEDED Status: Active Protocol: Document 03/26/24 12:03 AMB (Rec: 03/26/24 12:39 AMB [id number]) Orientation Orientation/Cognition Level of Alertness Alert Gross Range of Motion Lower Extremity ROM Assessment Right Impaired Strength Lower Extremity Strength Assessment Right Impaired M6 PT-IP Treatment Start: 03/26/24 10:00 Freq: NEEDED Status: Active Protocol: Document 03/26/24 17:34 AMB (Rec: 03/26/24 17:40 AMB [id number]) Physical Therapy Treatment Education Education Provided Precautions,Weight Bearing Status M7 PT-IP Assessment and Plan Start: 03/26/24 10:00 Freq: NEEDED Status: Active Protocol: Document 03/26/24 17:34 AMB (Rec: 03/26/24 17:40 AMB [id number]) PT Summary Assessment and Plan Potential Rehabilitation Potential Fair Status of Condition at Evaluation Evolving Summary Assessment Summary Myke's blood pressure was better and she was less symptomatic with gait this afternoon, however she was on 2L O2, since her O2 was in the 80s at rest on room air. She continues to ambulate very slowly and carefully, but was able to tolerate going up and down a platform step with a walker x2 with CGA. Goals Bed Mobility Goal Contact Guard Assistance Transfer Goal Contact Guard Assistance Gait Goal Contact Guard Assistance Gait Distance 50 Days to Meet Goals 3 Frequency of Treatment Frequency Of Treatment Twice a Day Treatment Plan Physical Therapy Treatment Plan Bed Mobility Training,Transfer Training,Gait Training, Therapeutic Exercise, Neuromuscular Re-ed Other Recommendations and Next Treatment Progress gait and stairs Focus Weight Bearing Status Weight Bearing Status Weight Bear as Tolerated Recommendations To Nursing Amount of Assist Needed 1 Person Assist Discharge Recommendations PT Discharge Recommendations Home with 19/03 Assist Available Transportation Needs at Discharge Private Vehicle
[2024-03-26] MEDS: ATORVASTATIN 20 MG TABLET 40 MG PO (20:59)
[2024-03-27 08:00] VITALS: BP 95/49; PULSE 80; RESP 20; TEMP 36.8; O2SAT 87
[2024-03-27] MEDS: CLOPIDOGREL 75 MG TABLET PO (08:42)
[2024-03-27] MEDS: ASPIRIN EC 81 MG TABLET PO (08:42)
[2024-03-27] MEDS: OXYCODONE IR 5 MG TABLET PO ×2 (08:42→12:32)
[2024-03-27] MEDS: DOCUSATE 100 MG CAPSULE PO (08:42)
[2024-03-27] MEDS: PANTOPRAZOLE DR 40 MG TABLET PO (08:43)
[2024-03-27 08:50] VITALS: BP 95/49; PULSE 83
[2024-03-27 08:51] VITALS: BP 95/49; PULSE 83
--- NOTE | 2024-03-27 09:45 | PT.IPTN ---
Current Diagnoses Unilateral primary osteoarthritis, right hip (03/25/24) Surgery Performed Operation Date: 03/25/24 13:45 Actual Procedures p Total Hip Arthroplasty(Right) - Frances De Leon MD Physical Therapy Treatment Note M2 PT-IP Current Condition Start: 03/26/24 10:00 Freq: NEEDED Status: Active Protocol: Document 03/26/24 12:03 AMB (Rec: 03/26/24 12:39 AMB [id number]) Physical Therapy Current Condition Current Condition Evaluation Date 03/26/24 Treatment Diagnosis R posterior CHRISTO Onset Date 03/25/24 M3 PT-IP Subjective Start: 03/26/24 10:00 Freq: NEEDED Status: Active Protocol: Document 03/27/24 10:27 TS (Rec: 03/27/24 10:40 TS [id number]) Subjective Physical Therapy Visit Type Type Treatment Note Visit Start Time 09:45 Visit Stop Time 10:25 Number of [employer]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 Therapy Pain Assessment Pain When Pain Assessed During Mobility Pain Present Pain Present Pain Reported M4 PT-IP Mobility and Gait Start: 03/26/24 10:00 Freq: NEEDED Status: Active Protocol: Document 03/27/24 10:27 TS (Rec: 03/27/24 10:40 TS [id number]) PT-Bed Mobility Assessment Supine to Sit Supine to Sit Minimal Assistance,1 Person Assistance Scooting Scooting to Edge of Bed Minimal Assistance PT-Transfer Assessment Sit to and From Stand Sit to and from Stand Contact Guard Assistance,1 Person Assistance,Use of Upper Extremities Equipment Transfer Assistive Device Gait Belt,Front Wheeled Walker Orthotic/Prosthetic Devices or Brace: No Comments Mobility Comments Pt resting on 1L or 02, SPo2 88%, cues for PLB. Increased o2 to 2L's for mobility, SPo2 92%. Bp in supine 93/61. Supine to sit Megan for uprighting trunk with STEWARD/STEWARDESS WINE. Pt required Megan for scooting to EOB. STS with FWW CGA, she has good standing balance. BP in standing 76/46, denies any dizziness or lightheadedness. She ambulated ~25' in the room CGA with FWW. Pt performed own pericare. She ambulated back to chair, continues to deny dizziness. She recalled 3 /3 hip precautions. Pt was left in chair on 1L of o2, all needs met. Gait Assessment Gait Gait Assistance Required: Contact Guard Assist Distance (Feet) 25 Able to Maintain Weight Bearing Status Yes During Gait Assistive Devices Assistive Device Front Wheeled Walker Gait Deviations General Gait Pattern Antalgic,Decreased Stride Length,Decreased Feet Clearance,Step-to Gait Factors Limiting Gait Function Factors Limiting Gait Function Decreased Activity Tolerance, Decreased Strength,Pain Comments Gait Comments Continues to ambluate very slowly, but was walking slowly prior to surgery. CGA with FWW and gait belt. PT-Balance Assessment Sitting Balance and Reactions Static Sitting Balance Ability Good Dynamic Sitting Balance Ability Fair Standing Balance and Reactions Static Standing Balance Ability Good Dynamic Standing Balance Ability Fair M5 PT-IP Objective Assessments Start: 03/26/24 10:00 Freq: NEEDED Status: Active Protocol: Document 03/26/24 12:03 AMB (Rec: 03/26/24 12:39 AMB [id number]) Orientation Orientation/Cognition Level of Alertness Alert Gross Range of Motion Lower Extremity ROM Assessment Right Impaired Strength Lower Extremity Strength Assessment Right Impaired M6 PT-IP Treatment Start: 03/26/24 10:00 Freq: NEEDED Status: Active Protocol: Document 03/27/24 10:27 TS (Rec: 03/27/24 10:40 TS [id number]) Physical Therapy Treatment Education Education Provided Precautions,Weight Bearing Status M7 PT-IP Assessment and Plan Start: 03/26/24 10:00 Freq: NEEDED Status: Active Protocol: Document 03/27/24 10:27 TS (Rec: 03/27/24 10:40 TS [id number]) PT Summary Assessment and Plan Potential Rehabilitation Potential Fair Summary Assessment Summary Myke's BP continues to be low , 76/46, she denies any dizziness or lightheadedness. She required Megan for bed mobility this session. She continues to ambulate short distances in the room with a slow gait. o2 on 1L was in high 80's increased to 2L's for mobility. Goals Bed Mobility Goal Contact Guard Assistance Transfer Goal Contact Guard Assistance Gait Goal Contact Guard Assistance Gait Distance 50 Days to Meet Goals 3 Frequency of Treatment Frequency Of Treatment Twice a Day Treatment Plan Physical Therapy Treatment Plan Bed Mobility Training,Transfer Training,Gait Training, Therapeutic Exercise, Neuromuscular Re-ed Other Recommendations and Next Treatment Progress gait and stairs Focus Precautions Posterior Hip Precautions No Hip Flexion > 90 degrees,No Hip Internal Rotation,No Hip Adduction Weight Bearing Status Weight Bearing Status Weight Bear as Tolerated Recommendations To Nursing Amount of Assist Needed 1 Person Assist Discharge Recommendations PT Discharge Recommendations Home with 19/03 Assist Available Transportation Needs at Discharge Private Vehicle
--- NOTE | 2024-03-27 12:03 | DI.RAD.S_ITS ---
PROCEDURE: XR CHEST 1V INDICATIONS: rule out before d/c home today since still on O2 TECHNIQUE: One view of the chest was acquired. COMPARISON: [facility], CT, CT CHEST WO CON, 03/27/2024, 12:15. FINDINGS: Surgical changes and devices: None. Lungs and pleura: Trace left pleural effusion versus thickening. No right-sided pleural effusion. No pneumothorax. Hyperexpansion of the lungs with flattening of the diaphragm suggestive of obstructive pulmonary disease. Left basilar linear atelectasis/scar. Mediastinum: Mediastinal contours appear normal. Heart size is normal. Aortic arch is calcified, indicating atherosclerosis. Bones and chest wall: No suspicious bony lesions. Overlying soft tissues appear unremarkable. Hyperexpansion of the IMPRESSION: Trance left pleural effusion versus thickening with left basilar linear atelectasis/scar. Please see same day CT chest for additional findings. Dictated by: Ranjith Styles M.D. on 03/27/2024 at 13:01 Approved by: Ranjith Styles M.D. on 03/27/2024 at 13:05
--- NOTE | 2024-03-27 12:03 | DI.CT.S_ITS ---
P the ROCEDURE: CT CHEST WO CON INDICATIONS: rule out before d/c home today since still on O2 TECHNIQUE: Noncontrast 5 mm thick sections acquired from the pulmonary apices to the posterior costophrenic angles. 1 mm lung window, 5 mm thick coronal and sagittal and 7 mm axial MIP reformats were then acquired. For radiation dose reduction, the following was used: automated exposure control, adjustment of mA and/or kV according to patient size. COMPARISON: None. FINDINGS: Image quality: Diagnostic. Lower Neck: No enlarged lymph nodes. Thyroid: No thyroid nodules which require sonographic follow up, per consensus guidelines. Axillae: No enlarged lymph nodes. Chest Wall: Unremarkable. Bones: No acute fracture. No aggressive appearing lytic or blastic osseous lesion. Mild to moderate multilevel degenerative changes of the spine. Lungs and Pleura: No pneumothorax or pleural effusions. Scattered centrilobular and tree bud nodules throughout the right lung best seen on the MIP reconstructions (6/58, 89, 105). Additional left lower lobe centrilobular nodules and linear atelectasis/scar. Trace left pleural effusion/thickening. Patent central airways. Mild apical predominant centrilobular and paraseptal emphysema. Bilateral lower lobe bronchial wall thickening. Heart: Heart size is mildly enlarged. No pericardial effusion. Marked three-vessel coronary calcification. Thoracic Vessels: The aorta and pulmonary arteries demonstrate normal size. Marked calcification of the thoracic aorta and origins of the great vessels. Mediastinum and Graciela: No enlarged lymph nodes. A few nonenlarged calcified mediastinal lymph nodes suggestive of prior granulomatous infection. Esophagus: No wall thickening. Small hiatal hernia. Upper Abdomen: Partially visualized hypodensity in the liver may represent volume averaging from the gallbladder versus a lesion with Hounsfield unit of 15 (2/58). Left upper pole nonobstructive nephrolith measuring 2 mm (2/58). Marked calcification of the visualized abdominal aorta. IMPRESSION: 1. Scattered centrilobular and tree-in-bud nodules throughout the right lung and left lower lobe with bronchial wall thickening suggestive of bronchiolitis of infectious or inflammatory etiology. 2. Left lower lobe linear atelectasis/scar with associated trace pleural effusion versus thickening. 3. Mild cardiomegaly with marked three-vessel coronary calcification. 4. Left upper pole nonobstructive nephrolith measuring 2 mm. 5. The the the Partially visualized hypodensity in the liver may represent volume averaging from the gallbladder versus a cystic lesion. If clinically warranted, a nonemergent right upper quadrant ultrasound can be performed for further evaluation. Dictated by: Ranjith Styles M.D. on 03/27/2024 at 13:09 Approved by: Ranjith Styles M.D. on 03/27/2024 at 13:17
--- NOTE | 2024-03-27 13:11 | CM.DPNOTE ---
DC Note Patient scheduled for discharge yesterday however she could not be weaned off O2, which is not baseline. SUSI Ramírez working on obtaining order for home O2 eval by RT, Ortho PA needs to order. Patient has planned on return home with assist and therapies have cleared patient for this plan. No addtl needs anticipated from this CM team. MOHIT
--- NOTE | 2024-03-27 17:27 | OT.IPNOTE ---
Pt's friend states pt to stay at his daughter house and to get all the equipment needs for her including a ramp. Pt's friend states someone with be with her at all times to assist. NO charge. Pt waiting on getting O2 for home use.
== END 2024-03-27 16:35 | disposition home or self-care (01) ==
LOC: OR 12:22 → AC 12:22
PROVIDERS: PCP Physician Assistant Medical; Referring Provider Orthopaedic Surgery; Visit Provider Orthopaedic Surgery
PROC: 0SR90JZ Replacement of Right Hip Joint with Synthetic Substitute, Open Approach (ICD-10-PCS; CPT 27130; principal; 2024-03-25 13:45)
DX: M16.11 Unilateral primary osteoarthritis, right hip (principal); I73.9 Peripheral vascular disease, unspecified
CPT/HCPCS: 27130; 36415; 71045; 71250; 72170; 73502; 82962; 85014; 85018; 94762; 97116; 97162; 97165; 97530; 97535; C1776; C9290; J0171; J0690; J2405; J2704